=== PATIENT | male | born 1965 | race African-American/Black ===

== ENCOUNTER 2017-07-26 17:13 | Inpatient (IN) | payer MEDICAID, OTHER ==
[~2017-07-26] VITALS: Ht 195.6 cm; Wt 77.4 kg
[~2017-07-26 17:13] MED LIST: DIVA500T52 PO; QUET300T2 PO
[2017-07-26] MEDS ORDERED: LORazepam 2 MG/ML VIAL IM ONE (18:15)
[2017-07-26] MEDS ORDERED: HALOPERIDOL LACTATE 5 MG/ML VIAL IM ONE (18:15)
[2017-07-26 18:21] LABS: EOSINOPHILS % (AUTO) 3.6 % (1.0-6.0); HEMATOCRIT 37.9 % (41-53); HEMOGLOBIN 12.6 g/dL (13.5-17.5); LYMPHOCYTES # (AUTO) 2.7 K/uL (1.0-4.8); LYMPHOCYTES % (AUTO) 41.5 % (22.0-44.0); MEAN CORPUSCULAR HEMOGLOBIN 30.4 pg (26.0-34.0); MEAN CORPUSCULAR HGB CONC 33.3 G/dL (31.0-37.0); MEAN CORPUSCULAR VOLUME 91 fL (80-100); MONOCYTES % (AUTO) 15.7 % (2.0-9.0); NEUTROPHILS # (AUTO) 2.5 K/uL (1.8-7.7); NEUTROPHILS % (AUTO) 38.2 % (40.0-70.0); PLATELET COUNT (AUTO) 317 K/uL (150-450); RED BLOOD CELL COUNT(AUTO) 4.16 MIL/uL (4.50-5.90); RED CELL DISTRIBUTION WIDTH 14.9 % (11.5-14.5)
[2017-07-26 18:30] LABS: ANION GAP 6 mmol/L (8-16); CALCIUM, TOTAL 8.8 mg/dL (8.8-10.5); CARBON DIOXIDE 30 mmol/L (22-29); CHLORIDE 106 mmol/L (98-107); CREATININE 0.65 mg/dL (0.60-1.30); GLOMERULAR FILTR. RATE CALC > 60 mL/min (>60); GLUCOSE,RANDOM 102 mg/dL (70-110); SODIUM SERUM 142 mmol/L (136-145); UREA NITROGEN, BLOOD 13 mg/dL (7-18)
[2017-07-26 18:37] LABS: ALANINE AMINOTRANSFERASE 30 U/L (12-78); ALKALINE PHOSPHATASE 62 U/L (46-116); ASPARTATE AMINOTRANSFERASE 30 U/L (15-37); BILIRUBIN,TOTAL 0.1 mg/dL (0.1-1.0); TOTAL PROTEIN, SERUM 6.5 g/dL (6.4-8.2)
[2017-07-26 18:53] LABS: VALPROIC ACID < 3 mcg/mL (50-100)
[2017-07-26] MEDS ORDERED: ZOLPIDEM TARTRATE 10 MG TABLET PO PRN (19:45)
[2017-07-26] MEDS ORDERED: LORazepam 2 MG TABLET PO PRN (19:45)
[2017-07-26] MEDS ORDERED: HALOPERIDOL 5 MG TABLET PO PRN (19:45)
[2017-07-26 23:35] LABS: AMPHET/METH SCREEN,URINE POSITIVE (NEGATIVE); APPEARANCE,URINE CLEAR (CLEAR); BARBITURATE SCREEN, URINE NEGATIVE (NEGATIVE); BENZODIAZEPINES SCREEN,URINE NEGATIVE (NEGATIVE); BILIRUBIN,URINE NEGATIVE (NEGATIVE); CANNABINOID SCREEN,URINE NEGATIVE (NEGATIVE); COCAINE SCREEN,URINE NEGATIVE (NEGATIVE); GLUCOSE, URINE (UA) NEGATIVE (NEGATIVE); KETONES,URINE NEGATIVE (NEGATIVE); LEUKOCYTE ESTERASE ,URINE NEGATIVE (NEGATIVE); METHADONE SCREEN, URINE NEGATIVE (NEGATIVE); NITRATE,URINE NEGATIVE (NEGATIVE); OCCULT BLOOD,URINE NEGATIVE (NEGATIVE); OPIATE SCREEN,URINE NEGATIVE (NEGATIVE); PROTEIN,URINE NEGATIVE (NEGATIVE); UROBILINOGEN,URINE 0.2 mg/dL (<=1.0)
[2017-07-26 23:40] LABS: PHENCYCLIDINE SCREEN,URINE NEGATIVE (NEGATIVE)
[2017-07-27] MEDS ORDERED: INFLUENZA VIRUS VACCINE QVS 2017-18 (3YR+)/PF 60 MCG/0.5 ML SYRINGE IM ONE (01:00)
[2017-07-27 06:47] LABS: THYROID STIMULATING HORMONE 1.28 uIU/mL (0.36-3.74)
[2017-07-27 09:31] VITALS: BP 142/69
[2017-07-27] MEDS: DIVALPROEX SODIUM 500 MG ER TABLET PO SCH (17:30)
[2017-07-27 19:12] VITALS: BP 137/78
[2017-07-27] MEDS: QUEtiapine FUMARATE 300 MG TABLET PO SCH (21:45)
[2017-07-28] MEDS: DIVALPROEX SODIUM 500 MG ER TABLET PO SCH ×2 (10:20→16:51)
[2017-07-28] MEDS: SERTRALINE HCL 50 MG TABLET PO SCH (10:20)
[2017-07-28 14:56] VITALS: BP 122/76
[2017-07-28 17:45] VITALS: BP 110/67
[2017-07-28] MEDS: QUEtiapine FUMARATE 300 MG TABLET PO SCH (20:27)
[2017-07-29 08:05] VITALS: BP 98/68
[2017-07-29] MEDS: DIVALPROEX SODIUM 500 MG ER TABLET PO SCH ×2 (09:24→16:35)
[2017-07-29] MEDS: SERTRALINE HCL 50 MG TABLET PO SCH (09:24)
[2017-07-29] MEDS: QUEtiapine FUMARATE 300 MG TABLET PO SCH (20:19)
[2017-07-29 20:32] VITALS: BP 101/60
[2017-07-30 07:08] LABS: BASOPHILS % (AUTO) 1.8 % (0.0-2.0); EOSINOPHILS % (AUTO) 1.9 % (1.0-6.0); HEMATOCRIT 41.1 % (41-53); LYMPHOCYTES # (AUTO) 2.1 K/uL (1.0-4.8); LYMPHOCYTES % (AUTO) 57.6 % (22.0-44.0); MEAN CORPUSCULAR HEMOGLOBIN 30.8 pg (26.0-34.0); MEAN CORPUSCULAR HGB CONC 33.9 G/dL (31.0-37.0); MEAN CORPUSCULAR VOLUME 91 fL (80-100); MONOCYTES # (AUTO) 0.4 K/uL (0.1-1.0); MONOCYTES % (AUTO) 11.3 % (2.0-9.0); NEUTROPHILS % (AUTO) 27.4 % (40.0-70.0); PLATELET COUNT (AUTO) 323 K/uL (150-450); RED BLOOD CELL COUNT(AUTO) 4.53 MIL/uL (4.50-5.90); RED CELL DISTRIBUTION WIDTH 14.9 % (11.5-14.5)
[2017-07-30 07:30] LABS: ALANINE AMINOTRANSFERASE 23 U/L (12-78); ALKALINE PHOSPHATASE 55 U/L (46-116); ANION GAP 6 mmol/L (8-16); ASPARTATE AMINOTRANSFERASE 22 U/L (15-37); BILIRUBIN,TOTAL 0.2 mg/dL (0.1-1.0); CALCIUM, TOTAL 8.8 mg/dL (8.8-10.5); CARBON DIOXIDE 28 mmol/L (22-29); CHLORIDE 107 mmol/L (98-107); CREATININE 0.64 mg/dL (0.60-1.30); GLOMERULAR FILTR. RATE CALC > 60 mL/min (>60); GLUCOSE,RANDOM 103 mg/dL (70-110); POTASSIUM 4.5 mmol/L (3.5-5.1); SODIUM SERUM 141 mmol/L (136-145); TOTAL PROTEIN, SERUM 6.6 g/dL (6.4-8.2); UREA NITROGEN, BLOOD 19 mg/dL (7-18); VALPROIC ACID 45 mcg/mL (50-100)
[2017-07-30] MEDS: SERTRALINE HCL 50 MG TABLET PO SCH (09:00)
[2017-07-30] MEDS: DIVALPROEX SODIUM 500 MG ER TABLET PO SCH ×2 (09:00→16:04)
[2017-07-30 09:47] VITALS: BP 102/63
[2017-07-30 09:51] VITALS: BP 102/63
[2017-07-30] MEDS: QUEtiapine FUMARATE 300 MG TABLET PO SCH (20:20)
[2017-07-30 21:37] VITALS: BP 100/58
[2017-07-31] MEDS: DIVALPROEX SODIUM 500 MG ER TABLET PO SCH (09:22)
[2017-07-31] MEDS: SERTRALINE HCL 50 MG TABLET PO SCH (09:22)
[2017-07-31] MEDS ORDERED: SERT50TA12 PO (10:39)
== END 2017-07-31 11:00 | disposition home or self-care (01) | DRG 750 ==
LOC: EMS 17:15 → 3EI 20:49
PROVIDERS: ADMIT Psychiatry & Neurology Psychiatry; ATTEND Psychiatry & Neurology Psychiatry
DX: F25.0 Schizoaffective disorder, bipolar type (principal); F15.20 Other stimulant dependence, uncomplicated; R45.851 Suicidal ideations; I10 Essential (primary) hypertension; E16.2 Hypoglycemia, unspecified; R26.9 Unspecified abnormalities of gait and mobility; F41.9 Anxiety disorder, unspecified; J45.909 Unspecified asthma, uncomplicated; Z96.651 Presence of right artificial knee joint; Z79.899 Other long term (current) drug therapy; Z59.0 Homelessness; Z80.6 Family history of leukemia; Z76.5 Malingerer [conscious simulation]; Z87.891 Personal history of nicotine dependence; Z91.19 Patient's noncompliance with other medical treatment and regimen
CPT/HCPCS: 84443; 96372; 99285; G0480; J1630; J2060